=== PATIENT | male | born 1940 | race Caucasian/White ===

== ENCOUNTER 2018-05-13 13:12 | Inpatient (IN) ==
[2018-05-13] MEDS ORDERED: MethylPREDNISolone Sod Succinate Inj 125 MG/2 ML Vial IV.PUSH ONE (13:28)
--- NOTE | 2018-05-13 13:43 | ED ---
HPI General Chief Complaint: Respiratory Symptoms Stated Complaint: Medical Time Seen by Provider: 05/13/18 13:16 Source: patient Mode of arrival: ambulatory Limitations: no limitations History of Present Illness The patient had a normal bowel movement earlier today.The patient is a 78-year -old male who presents to the emergency department for shortness of breath. The patient has a long-standing history of COPD and previous pneumothorax with previous surgery for the pneumothorax. The patient is followed by his sod stripper, Dr. Root. The patient had increasing shortness of breath last week and saw his sod stripper who placed him on prednisone 20 mg daily. The patient then had progressing symptoms and increase his oxygen use at home from 3 L to 4 L. However, the patient notes increasing shortness of breath that is worse with exertion and talking. The patient states he becomes short of breath just walking to the bathroom which is worse than baseline. He does note a chronic dry nonproductive cough, denies any change in the cough. He also complains of mild abdominal distention which he believes is pressing on his diaphragm, however, denies any nausea, vomiting, or change in bowel movements. The patient denies any fever, chills, or sweats. Symptoms are moderate to severe and progressive. MD Complaint: Reports shortness of breath Onset (ago): day(s) Context: Reports occurred during exertion and other Severity: severe Consistency/Duration: progressively worsening Relieving factors: nothing Exacerbating factors: exertion and talking Known history of: Reports COPD Associated symptoms: Reports cough and abdominal pain Treatment prior to arrival: Reports oxygen and other Related Data Home oxygen amount: 4 liters Home Medications Medication Instructions Recorded Confirmed aspirin [Serena Aspirin] 325 mg PO DAILY 05/13/18 05/13/18 atorvastatin 20 mg PO DAILY 05/13/18 05/13/18 diltiazem HCl 120 mg PO DAILY 05/13/18 05/13/18 fluticasone-salmeterol [Advair 1 inh INHALATION BID 05/13/18 05/13/18 Diskus] prednisone 20 mg PO DAILY 05/13/18 05/13/18 warfarin 3 mg PO DAILY 05/13/18 05/13/18 warfarin See Label Instructions .ROUTE 05/13/18 05/13/18 .COMPLEX Allergies Allergy/AdvReac Type Severity Reaction Status Date / Time *MDRO Multi-Drug Resistant AdvReac Unknown Uncoded 12/08/15 09:33 Organism Review of Systems ROS: all other systems reviewed are negative [facility] Medical History Medical History AAA (abdominal aortic aneurysm) (Acute) AAA (abdominal aortic aneurysm, ruptured) (Acute) Afib (Acute) Blood thinned due to long-term anticoagulant use (Acute) COPD (chronic obstructive pulmonary disease) (Acute) Oxygen deficiency (Acute) Pneumothorax (Acute) Shortness of breath (Acute) Social History Social History Substance History: No History of Abuse Smoking Status: Former smoker How Often Do You Have a Drink Containing Alcohol: 4 or more times a week Recent Travel in [facility] within the Last 8 Weeks: No Recent Out of Country Travel within the Last 8 Weeks: No Immunization History Tetanus Immunization: <5 Years Exam Narrative Exam Narrative: GENERAL: Awake, alert, pleasant 78-year-old male who appears his stated age and appears in moderate respiratory distress. SKIN: Focused skin assessment warm/dry. HEAD: Atraumatic. Normocephalic. EYES: Pupils equal and round. No scleral icterus. No injection or drainage. ENT: No nasal bleeding or discharge. Mucous membranes pink and moist. NECK: Trachea midline. No JVD. CARDIOVASCULAR: Regular, no audible murmur, heart rate in the 80s. RESPIRATORY: Tachypnea with a respiratory rate of 30. Diminished breath sounds throughout with prolonged expiratory phase. GASTROINTESTINAL: Abdomen soft, non-tender, minimal distention. No tympany noted. No rebound tenderness, guarding, rigidity. MUSCULOSKELETAL: No obvious deformities. No clubbing. No cyanosis. No edema. NEUROLOGICAL: Awake and alert. No obvious cranial nerve deficits. Motor grossly within normal limits. Normal speech. PSYCHIATRIC: Appropriate mood and affect; insight and judgment normal. Course Initial Documented Vital Signs Pulse Rate 94 H 05/13/18 13:13 Respiratory Rate 40 H 05/13/18 13:13 Blood Pressure 142/67 H 05/13/18 13:13 Pulse Oximetry 81 L 05/13/18 13:13 Last Documented Vital Signs Temperature 97.9 F 05/13/18 13:40 Pulse Rate 95 H 05/13/18 14:21 Respiratory Rate 24 05/13/18 14:21 Blood Pressure 124/83 05/13/18 13:28 Pulse Oximetry 97 05/13/18 14:21 Medical Decision Making MDM Narrative Medical decision making narrative: IV was established, labs are drawn and sent, and the patient was placed on cardiac telemetry monitoring and continuous pulse oximetry monitoring. EKG was ordered and interpreted. Chest x-ray was obtained. The patient was administered DuoNeb x2 and Solu-Medrol 125 mg intravenously. The patient's chest x-ray reveals a right lower lobe infiltrate. BNP is unremarkable. Troponin is unremarkable. INR is therapeutic at 2.2, doubt pulmonary embolism. It appears the patient had a COPD exacerbation with secondary pneumonia that failed outpatient therapy, therefore, the patient will be admitted. The patient also had hypoxia with an O2 sat in the 70s, was placed on oxygen to get his oxygen saturation up to 90-92 %. The patient's primary physician is Dr. Stephen Ricci and the patient's sod stripper is Dr. Binh Root. The patient will be admitted to the on- call medical service. The patient was covered with Rocephin and Zithromax for community acquired pneumonia. Medical Screen Exam Complete: Yes Emergency Medical Condition: Yes Differential Diagnosis Differential Diagnosis: Differential diagnosis includes COPD exacerbation, pneumonia, bronchitis, pleural effusion, pulmonary embolism, cardiomyopathy, congestive heart failure. Lab Data Lab results reviewed: Yes I reviewed the patient's lab results. Result diagrams: 05/13/18 13:35 05/13/18 13:35 Lab Results 05/13/18 05/13/18 05/13/18 Range/Units 13:35 13:35 13:35 WBC 8.5 (4.0-11.0) th/mm3 RBC 5.71 (4.50-5.90) mil/mm3 Hgb 16.9 (13.0-17.0) gm/dL Hct 51.2 H (39.0-51.0) % MCV 89.8 (80.0-100.0) fL MCH 29.6 (27.0-34.0) pg MCHC 33.0 (32.0-36.0) % RDW 14.2 (11.6-17.2) % Plt Count 254 (150-450) th/mm3 MPV 8.9 (7.0-11.0) fL Neut % (Auto) 88.8 H (16.0-70.0) % Lymph % (Auto) 8.3 L (9.0-44.0) % Fountain % (Auto) 2.7 (0.0-8.0) % Eos % (Auto) 0.0 (0.0-4.0) % Baso % (Auto) 0.2 (0.0-2.0) % Neut # (Auto) 7.6 (1.8-7.7) th/mm3 Lymph # (Auto) 0.7 L (1.0-4.8) th/mm3 Fountain # (Auto) 0.2 (0.0-0.9) th/mm3 Eos # (Auto) 0.0 (0.0-0.4) th/mm3 Baso # (Auto) 0.0 (0.0-0.2) th/mm3 WBC Differential . Differential Comment Auto diff final PT (9.8-11.6) sec INR Ratio APTT (24.3-30.1) sec Sodium 137 (136-145) meq/L Potassium 4.9 (3.5-5.1) meq/L Chloride 102 (98-107) meq/L Carbon Dioxide 27.8 (21.0-32.0) meq/L Anion Gap 7 (5-15) meq/L BUN 13 (7-18) mg/dL Creatinine 0.92 (0.60-1.30) mg/dL Estimated GFR 80 L (>89) mL/min Random Glucose 96 (74-106) mg/dL Calcium 8.7 (8.5-10.1) mg/dL Magnesium 2.0 (1.5-2.5) mg/dL Total Bilirubin 0.9 (0.2-1.0) mg/dL AST 24 (15-37) U/L ALT 22 (12-78) U/L Alkaline Phosphatase 85 (45-117) U/L Total Creatine Kinase 78 (39-308) U/L Troponin I Less than 0.02 L (0.02-0.05) ng/mL B-Natriuretic Peptide 55 (0-100) pg/mL Total Protein 8.4 H (6.4-8.2) g/dL Albumin 3.8 (3.4-5.0) g/dL 05/13/18 Range/Units 13:45 WBC (4.0-11.0) th/mm3 RBC (4.50-5.90) mil/mm3 Hgb (13.0-17.0) gm/dL Hct (39.0-51.0) % MCV (80.0-100.0) fL MCH (27.0-34.0) pg MCHC (32.0-36.0) % RDW (11.6-17.2) % Plt Count (150-450) th/mm3 MPV (7.0-11.0) fL Neut % (Auto) (16.0-70.0) % Lymph % (Auto) (9.0-44.0) % Fountain % (Auto) (0.0-8.0) % Eos % (Auto) (0.0-4.0) % Baso % (Auto) (0.0-2.0) % Neut # (Auto) (1.8-7.7) th/mm3 Lymph # (Auto) (1.0-4.8) th/mm3 Fountain # (Auto) (0.0-0.9) th/mm3 Eos # (Auto) (0.0-0.4) th/mm3 Baso # (Auto) (0.0-0.2) th/mm3 WBC Differential Differential Comment PT 22.3 H (9.8-11.6) sec INR 2.2 Ratio APTT 33.5 H (24.3-30.1) sec Sodium (136-145) meq/L Potassium (3.5-5.1) meq/L Chloride (98-107) meq/L Carbon Dioxide (21.0-32.0) meq/L Anion Gap (5-15) meq/L BUN (7-18) mg/dL Creatinine (0.60-1.30) mg/dL Estimated GFR (>89) mL/min Random Glucose (74-106) mg/dL Calcium (8.5-10.1) mg/dL Magnesium (1.5-2.5) mg/dL Total Bilirubin (0.2-1.0) mg/dL AST (15-37) U/L ALT (12-78) U/L Alkaline Phosphatase (45-117) U/L Total Creatine Kinase (39-308) U/L Troponin I (0.02-0.05) ng/mL B-Natriuretic Peptide (0-100) pg/mL Total Protein (6.4-8.2) g/dL Albumin (3.4-5.0) g/dL Imaging Data Attestation: I personally reviewed and interpreted this imaging study as follows : My impression: Right perihilar infiltrate Radiologist's impression: Chest X-Ray 05/13/18 13:29 CONCLUSION: 1. Right perihilar patchiness consistent with possible developing infiltrate. Clinical correlation is recommended. 2. Small right pleural effusion. 3. Scattered underlying emphysematous changes and biapical scarring are stable. ECG Data EKG Prior to Arrival: No Attestation: I personally reviewed and interpreted this ECG as follows: Interpretation: EKG reveals normal sinus rhythm with a rate 85. Left axis deviation. Discharge Plan Discharge Disposition Patient Disposition: 30 Still Patient Discharge Condition Condition: Stable Discharge Details Diagnosis: Community acquired pneumonia, Hypoxia, COPD with acute exacerbation Physicians Team ED Provider: Haroldo Gutierrez Primary Care Provider: UNKNOWN, Rxs /Orders / Referrals /Forms Prescriptions: No Action fluticasone-salmeterol [Advair Diskus] 250-50 mcg/dose Blister With Device 1 inh INHALATION BID RF: 0 atorvastatin 20 mg Tablet 20 mg PO DAILY RF: 0 aspirin [Serena Aspirin] 325 mg Tablet 325 mg PO DAILY RF: 0 prednisone 20 mg Tablet 20 mg PO DAILY RF: 0 warfarin 3 mg Tablet 3 mg PO DAILY RF: 0 diltiazem HCl 120 mg Capsule,Extended Release 24 Hr 120 mg PO DAILY RF: 0 warfarin 2 mg Tablet See Label Instructions .ROUTE .COMPLEX RF: 0 Discharge Interventions Interventions: Vital Signs Last Done: 05/13/18 13:40 Status ED Status: Pending Admission
[2018-05-13 13:51] LABS: Baso % (Auto) 0.2 % (0.0-2.0); Hematocrit 51.2 % (39.0-51.0); Hemoglobin 16.9 gm/dL (13.0-17.0); Lymph # (Auto) 0.7 th/mm3 (1.0-4.8); Lymph % (Auto) 8.3 % (9.0-44.0); Mean Corpuscular Hemoglobin 29.6 pg (27.0-34.0); Mean Corpuscular Volume 89.8 fL (80.0-100.0); Mean Platelet Volume 8.9 fL (7.0-11.0); Mono # (Auto) 0.2 th/mm3 (0.0-0.9); Mono % (Auto) 2.7 % (0.0-8.0); Neut # (Auto) 7.6 th/mm3 (1.8-7.7); Neut % (Auto) 88.8 % (16.0-70.0); Platelet Count 254 th/mm3 (150-450); Red Blood Count 5.71 mil/mm3 (4.50-5.90); Red Cell Distribution Width 14.2 % (11.6-17.2); White Blood Count 8.5 th/mm3 (4.0-11.0)
--- NOTE | 2018-05-13 13:55 | XR ---
EXAM DATE: 05/13/2018 1:50 PM EDT AGE/SEX: 78 years / Male INDICATIONS: Shortness of breath. CLINICAL DATA: This is the patient's initial encounter. Patient reports that signs and symptoms have been present for 1 day and indicates a pain score of 0/10. MEDICAL/SURGICAL HISTORY: Chronic obstructive pulmonary disease. Emphysema. Aneurysm, abdominal . Arthritis. Neuropathy bilateral lower extremities post AAA. Hyperlipidemia. A-Fib. COPD. Asthma. Sl eep apnea. Pneumothorax. MRSA. . Valve replacement, unspecified. Abdominal aortic aneurysm repair. Cholecystectomy. Right hip replacement. Right lobectomy. COMPARISON: [facility], XR CHEST PA AND LAT, 05/01/2018. . FINDINGS: Small right pleural effusion is noted. Underlying emphysematous changes are again noted. Right perihi lar patchiness is noted consistent with possible developing infiltrate. Biapical scarring is stable. Median sternotomy wires are noted status post cardiac surgery. The heart is stable. CONCLUSION: 1. Right perihilar patchiness consistent with possible developing infiltrate. Clinical correlation i s recommended. 2. Small right pleural effusion. 3. Scattered underlying emphysematous changes and biapical scarring are stable. Electronically signed by: Sandoval Gonzalez MD 05/13/2018 1:53 PM EDT
[2018-05-13] MEDS ORDERED: Azithromycin Inj 500 MG in Sodium Chlor 0.9% Inj 250 ML IV.SIG ONE (13:56)
[2018-05-13 14:06] LABS: Activated Partial Thrombo Time 33.5 sec (24.3-30.1); INR 2.2 Ratio; Prothrombin Time 22.3 sec (9.8-11.6)
[2018-05-13 14:14] LABS: Alanine Aminotransferase 22 U/L (12-78); Albumin 3.8 g/dL (3.4-5.0); Anion Gap 7 meq/L (5-15); Aspartate Aminotransferase 24 U/L (15-37); Blood Urea Nitrogen 13 mg/dL (7-18); Calcium 8.7 mg/dL (8.5-10.1); Carbon Dioxide 27.8 meq/L (21.0-32.0); Chloride 102 meq/L (98-107); Glomerular Filtration Rate 80 mL/min (>89); Glucose,Random 96 mg/dL (74-106); Potassium 4.9 meq/L (3.5-5.1); Sodium 137 meq/L (136-145)
[2018-05-13 14:18] LABS: Alkaline Phosphatase 85 U/L (45-117); Total Protein 8.4 g/dL (6.4-8.2)
[2018-05-13 14:20] LABS: Creatine Kinase 78 U/L (39-308)
[2018-05-13] MEDS ORDERED: Warfarin Consult Pharmacy OTHER PRN (14:53)
[2018-05-13] MEDS ORDERED: Acetaminophen 325 MG Tablet PO PRN (14:59)
--- NOTE | 2018-05-13 15:22 | P.HPIM ---
History of Present Illness Primary Care Physician: UNKNOWN Chief Complaint: Shortness of breath History of Present Illness: The patient is a 78-year-old male with a past medical history of COPD on home oxygen who is presenting to the hospital with shortness of breath. The patient has chronic shortness of breath but his breathing became more labored about 2 weeks ago. He went to his toxicologist who ordered a chest x-ray and increased his prednisone dose. The patient did not feel much better. He says over the past 3 days his breathing has gotten progressively worse. He feels short of breath sitting down and standing up. He increased his home oxygen to 4 L nasal cannula all of the time. At home his pulse oximeter said that his oxygen level was in the 70s and it took a long time to get back up to the 80s. He denies any fever. He has had clear mucus production. He has chronic lower extremity swelling but nothing new. He says this is the third bout of pneumonia he has had. He has had a prior pneumothorax and lobectomy. He is a former smoker. Review of Systems All other systems reviewed negative except as stated in HPI PMFSH - History History Provided By: Patient - Medical History Medical History: Medical History (Last Updated 05/13/18 @ 15:21 by Ezra Snow DO) AAA (abdominal aortic aneurysm) AAA (abdominal aortic aneurysm, ruptured) Afib Blood thinned due to long-term anticoagulant use COPD (chronic obstructive pulmonary disease) Hyperlipidemia Oxygen deficiency Pneumonia Pneumothorax Shortness of breath - Surgical History Surgical History: Surgical History (Last Updated 05/13/18 @ 15:21 by Ezra Snow DO) S/P lobectomy of lung - Family History Family History: Family History (Last Updated 05/13/18 @ 15:22 by Ezra Snow DO) Other Brain aneurysm - Social History I have reviewed the patient's Social History: Yes - Tobacco History Smoking Status: Former smoker - Alcohol History How Often Do You Have a Drink Containing Alcohol: 4 or more times a week ( Drinks wine daily) - Substance Use History Substance History: No History of Abuse - Travel History Recent Travel in the [facility] Within the Last 8 Weeks: No Recent Travel Out of the Country Within the Last 8 Weeks: No - Immunization History Tetanus Immunization: <5 Years Medications and Allergies Active Medications: Active Medications Acetaminophen (Tylenol) 650 mg PO Q4H PRN PRN Reason: Temp > 100.4, pain 1-2 Albuterol (Duoneb Neb (Alesha)) 1 ampul NEB Q6HR WHILE AWAKE NEB ALESHA Albuterol (Duoneb Neb (Prn)) 1 ampul NEB Q2HR NEB PRN PRN Reason: DYSPNEA Aspirin (Aspirin) 325 mg PO DAILY [facility] Atorvastatin Calcium (Lipitor) 20 mg PO DAILY [facility] Budesonide/Formoterol Fumarate (Symbicort 160/4.5 Mcg Inh) 2 puff INH BID [facility] Azithromycin 500 mg/ Sodium (Chloride) 250 mls @ 250 mls/hr IV.SIG Q24H ALESHA Ceftriaxone Sodium 1,000 mg/ (Sodium Chloride) 100 mls @ 200 mls/hr IV.SIG Q24H ALESHA Sodium Chloride (Ns Inj) 1,000 mls @ 100 mls/hr IV.CONT .Q10H [facility] Stop: 05/14/18 10:59 Non-Formulary Medication (Diltiazem Hcl [Diltiazem Hcl]) 120 mg PO DAILY [facility] Pharmacy Profile Note (Coumadin Consult Pharmacy) 1 each OTHER UNSCH PRN PRN Reason: PHARMACY DOCUMENTATION Warfarin Sodium (Coumadin) 3 mg PO DAILY@1600 [facility] Allergies Allergy/AdvReac Type Severity Reaction Status Date / Time *MDRO Multi-Drug Resistant AdvReac Unknown Uncoded 12/08/15 09:33 Organism Home Medications Medication Instructions Recorded Confirmed Type aspirin [Serena Aspirin] 325 mg PO DAILY 05/13/18 05/13/18 History atorvastatin 20 mg PO DAILY 05/13/18 05/13/18 History diltiazem HCl 120 mg PO DAILY 05/13/18 05/13/18 History fluticasone-salmeterol [Advair 1 inh INHALATION BID 05/13/18 05/13/18 History Diskus] prednisone 20 mg PO DAILY 05/13/18 05/13/18 History warfarin 3 mg PO DAILY 05/13/18 05/13/18 History warfarin See Label Instructions .ROUTE 05/13/18 05/13/18 History .COMPLEX Exam Vital signs: Vital Signs 05/13/18 13:13 05/13/18 13:28 05/13/18 13:33 Temperature Pulse Rate 94 H 96 H Respiratory Rate 40 H 20 Blood Pressure 142/67 H 124/83 Pulse Oximetry 81 L 79 L 92 L 05/13/18 13:40 05/13/18 14:21 05/13/18 14:58 Temperature 97.9 F Pulse Rate 95 H 83 Respiratory Rate 24 15 Blood Pressure 124/83 Pulse Oximetry 97 94 L Intake & Output 05/12/18 05/13/18 05/13/18 18:59 06:59 18:59 Intake Total 100 / 100 Balance 100 / 100 Weight 77.564 kg Intake: IV 100 / 100 Rocephin Inj 1,000 MG In NS Inj 100 / 100 100 ML @ 200 mls/hr IV.SIG ONCE ONE Rx#:[id number] Narrative: GENERAL: No apparent distress. SKIN: Focused skin assessment warm/dry. HEAD: Atraumatic. Normocephalic. EYES: Pupils equal and round. No scleral icterus. No injection or drainage. ENT: No nasal bleeding or discharge. Mucous membranes pink and moist. NECK: Trachea midline. No JVD. CARDIOVASCULAR: Regular, no audible murmur. RESPIRATORY: Diminished breath sounds throughout with prolonged expiratory phase. GASTROINTESTINAL: Abdomen soft, non-tender, no distention. No rebound tenderness , guarding, rigidity. MUSCULOSKELETAL: No obvious deformities. No clubbing. No cyanosis. TR lower extremity edema. NEUROLOGICAL: Awake and alert. No obvious cranial nerve deficits. Motor grossly within normal limits. Normal speech. PSYCHIATRIC: Appropriate mood and affect; insight and judgment normal. Results - Labs CBC & Chem 7: 05/13/18 13:35 05/13/18 13:35 Labs: Short CBC 05/13/18 Range/Units 13:35 WBC 8.5 (4.0-11.0) th/mm3 Hgb 16.9 (13.0-17.0) gm/dL Hct 51.2 H (39.0-51.0) % Plt Count 254 (150-450) th/mm3 BMP 05/13/18 13:35 Sodium 137 Potassium 4.9 Chloride 102 Carbon Dioxide 27.8 BUN 13 Creatinine 0.92 Calcium 8.7 Cardiac Enzymes 05/13/18 Range/Units 13:35 Total Creatine Kinase 78 (39-308) U/L Troponin I Less than 0.02 L (0.02-0.05) ng/mL Liver Function 05/13/18 Range/Units 13:35 Total Bilirubin 0.9 (0.2-1.0) mg/dL AST 24 (15-37) U/L ALT 22 (12-78) U/L Alkaline Phosphatase 85 (45-117) U/L Albumin 3.8 (3.4-5.0) g/dL - Imaging Impressions Chest X-Ray 05/13/18 13:29 CONCLUSION: 1. Right perihilar patchiness consistent with possible developing infiltrate. Clinical correlation is recommended. 2. Small right pleural effusion. 3. Scattered underlying emphysematous changes and biapical scarring are stable. Caprini VTE Risk Assessment Caprini VTE Risk Assessment: Moderate/High Risk (score >= 2) Caprini Risk Assessment Model: Point Value = 1 Point Value = 2 Point Value = 3 Point Value = 5 Age 41-60 Minor surgery BMI > 25 kg/m2 Swollen legs Varicose veins or History of unexplained or recurrent spontaneous Oral contraceptives or hormone replacement Sepsis (< 1 month) Serious lung disease, including pneumonia (< 1 month) Abnormal pulmonary function Acute myocardial infarction Congestive heart failure (< 1 month) History of inflammatory bowel disease Medical patient at bed rest Age 61-74 Arthroscopic surgery Major open surgery (> 45 min) Laparoscopic surgery (> 45 min) Malignancy Confined to bed (> 72 hours) Immobilizing plaster cast Central venous access Age >= 75 History of VTE Family history of VTE Factor V Leiden Prothrombin [id number] Lupus anticoagulant Anticardiolipin antibodies Elevated serum homocysteine Heparin-induced thrombocytopenia Other congenital or acquired thrombophilia Stroke (< 1 month) Elective arthroplasty Hip, pelvis, or leg fracture Acute spinal cord injury (< 1 month) Prophylaxis Regimen: Total Risk Factor Score Risk Level Prophylaxis Regimen 0-1 Low Early ambulation 2 Moderate Order ONE of the following: *Sequential Compression Device (SCD) *Heparin 5000 units SQ BID 3-4 Higher Order ONE of the following medications: *Heparin 5000 units SQ TID *Enoxaparin/Lovenox 40 mg SQ daily (WT < 150 kg, CrCl > 30 mL/min) *Enoxaparin/Lovenox 30 mg SQ daily (WT < 150 kg, CrCl > 10-29 mL/min) *Enoxaparin/Lovenox 30 mg SQ BID (WT < 150 kg, CrCl > 30 mL/min) AND/OR *Sequential Compression Device (SCD) 5 or more Highest Order ONE of the following medications: *Heparin 5000 units SQ TID (Preferred with Epidurals) *Enoxaparin/Lovenox 40 mg SQ daily (WT < 150 kg, CrCl > 30 mL/min) *Enoxaparin/Lovenox 30 mg SQ daily (WT < 150 kg, CrCl > 10-29 mL/min) *Enoxaparin/Lovenox 30 mg SQ BID (WT < 150 kg, CrCl > 30 mL/min) AND *Sequential Compression Device (SCD) Assessment and Plan - Plan Acute COPD exacerbation with pneumonia The pt is on 4L NC at home. Imaging shows right sided pneumonia. Has been hypoxemic with sats in the 70s. -continue IV ceftriaxone and azithromycin. -standing and as needed nebs. -Solumedrol 40 mg IV q8h. -continue oxygen, titrate as needed. -incentive spirometry, physical therapy. -consult pt's toxicologist, Dr. Root. A fib EKG shows sinus rhythm. -continue Coumadin, pharmacy assistance appreciated. -continue ASA and CCB. PPx: Coumadin Code Status: Full
[2018-05-13] MEDS: Sod Chloride 0.9% Inj 1,000 ML IV.CONT SCH (16:23)
[2018-05-13] MEDS: MethylPREDNISolone Sod Succinate Inj 40 MG/ML Vial IV.PUSH SCH (22:12)
[2018-05-13] MEDS: Budesonide-Formoterol 160/4.5 MCG 6 GM Inhaler INH SCH (23:11)
--- NOTE | 2018-05-13 23:40 | ECG ---
Date Performed: 05/13/2018 Time Performed: 13:39:08 PTAGE: 78 years EKG: Sinus rhythm MARKED LEFT AXIS DEVIATION ABNORMAL QRS-T ANGLE ABNORMAL ECG PREVIOUS TRACING : 12/03/2015 15.02 Since the previous tracing, no significant change noted DOCTOR: Burak Ortiz Interpretating Date/Time 05/13/2018 23:40:21
[2018-05-14] MEDS: Sod Chloride 0.9% Inj 1,000 ML IV.CONT SCH (00:32)
[2018-05-14] MEDS: MethylPREDNISolone Sod Succinate Inj 40 MG/ML Vial IV.PUSH SCH ×3 (05:43→22:12)
[2018-05-14 07:23] LABS: Baso % (Auto) 0.1 % (0.0-2.0); Hematocrit 45.4 % (39.0-51.0); Hemoglobin 14.9 gm/dL (13.0-17.0); Lymph # (Auto) 0.8 th/mm3 (1.0-4.8); Lymph % (Auto) 8.1 % (9.0-44.0); Mean Corpuscular HGB Conc 32.8 % (32.0-36.0); Mean Corpuscular Hemoglobin 29.8 pg (27.0-34.0); Mean Corpuscular Volume 90.8 fL (80.0-100.0); Mean Platelet Volume 8.9 fL (7.0-11.0); Mono # (Auto) 0.2 th/mm3 (0.0-0.9); Mono % (Auto) 2.6 % (0.0-8.0); Neut # (Auto) 8.3 th/mm3 (1.8-7.7); Neut % (Auto) 89.2 % (16.0-70.0); Platelet Count 210 th/mm3 (150-450); Red Blood Count 4.99 mil/mm3 (4.50-5.90); Red Cell Distribution Width 14.4 % (11.6-17.2); White Blood Count 9.3 th/mm3 (4.0-11.0)
[2018-05-14 07:29] LABS: Prothrombin Time 20.6 sec (9.8-11.6)
[2018-05-14 07:49] LABS: Alanine Aminotransferase 19 U/L (12-78); Albumin 3.2 g/dL (3.4-5.0); Anion Gap 6 meq/L (5-15); Aspartate Aminotransferase 19 U/L (15-37); Blood Urea Nitrogen 17 mg/dL (7-18); Calcium 8.6 mg/dL (8.5-10.1); Carbon Dioxide 29.6 meq/L (21.0-32.0); Chloride 103 meq/L (98-107); Glomerular Filtration Rate 82 mL/min (>89); Glucose,Random 129 mg/dL (74-106); Potassium 4.8 meq/L (3.5-5.1); Sodium 139 meq/L (136-145)
[2018-05-14 07:50] LABS: Alkaline Phosphatase 71 U/L (45-117); Total Protein 7.5 g/dL (6.4-8.2)
[2018-05-14] MEDS ORDERED: Aspirin 325 MG Tablet PO SCH (09:00)
[2018-05-14] MEDS: Budesonide-Formoterol 160/4.5 MCG 6 GM Inhaler INH SCH ×2 (10:07→22:13)
[2018-05-14] MEDS: dilTIAZem CD 120 MG Capsule PO SCH (10:07)
--- NOTE | 2018-05-14 10:59 | P.PN ---
Subjective Interval history: Follow-up COPD exacerbation with respiratory failure/required pneumonia May 14, 2018-patient seen and examined, reports some improvement of shortness of breath. Still with some nonproductive cough. Requiring 6 L nasal cannula. Afebrile Physical Exam Vital signs: Vital Signs 05/13/18 13:13 05/13/18 13:28 05/13/18 13:33 Temperature Pulse Rate 94 H 96 H Respiratory Rate 40 H 20 Blood Pressure 142/67 H 124/83 Pulse Oximetry 81 L 79 L 92 L 05/13/18 13:40 05/13/18 14:21 05/13/18 14:58 Temperature 97.9 F Pulse Rate 95 H 83 Respiratory Rate 24 15 Blood Pressure 124/83 Pulse Oximetry 97 94 L 05/13/18 17:38 05/13/18 17:59 05/13/18 20:00 Temperature 98 F 98.0 F Pulse Rate 80 84 Respiratory Rate 18 19 Blood Pressure 126/62 108/68 Pulse Oximetry 92 L 97 92 L 05/13/18 21:17 05/14/18 00:00 05/14/18 02:28 Temperature 98.0 F Pulse Rate 88 85 104 H Respiratory Rate 20 17 24 Blood Pressure 116/69 Pulse Oximetry 91 L 95 05/14/18 04:00 05/14/18 07:59 05/14/18 08:00 Temperature 97.9 F 97.6 F Pulse Rate 90 79 82 Respiratory Rate 15 18 18 Blood Pressure 148/65 H 116/71 Pulse Oximetry 92 L 93 L 95 Intake & Output 05/13/18 05/14/18 05/14/18 18:59 06:59 18:59 Intake Total 590 / 590 240 / 240 Balance 590 / 590 240 / 240 Weight 77.7 kg 78 kg Intake: IV 350 / 350 0 / 0 NS Inj 1,000 ML @ 100 mls/hr IV 0 / 0 .CONT .Q10H [facility] Rx#:[id number] Azithromycin Inj 500 MG In NS 250 / 250 Inj 250 ML @ 250 mls/hr IV.SIG ONCE ONE Rx#:[id number] Rocephin Inj 1,000 MG In NS Inj 100 / 100 100 ML @ 200 mls/hr IV.SIG ONCE ONE Rx#:[id number] Oral 240 / 240 240 / 240 Other: Date of Last Bowel Movement 05/13/18 Weight On Admission 77.7 kg Narrative: GENERAL: No apparent distress. SKIN: Focused skin assessment warm/dry. HEAD: Atraumatic. Normocephalic. EYES: Pupils equal and round. No scleral icterus. No injection or drainage. ENT: No nasal bleeding or discharge. Mucous membranes pink and moist. NECK: Trachea midline. No JVD. CARDIOVASCULAR: Irregular regular, no audible murmur. RESPIRATORY: Diminished breath sounds throughout; no wheezing. GASTROINTESTINAL: Abdomen soft, non-tender, no distention. No rebound tenderness , guarding, rigidity. MUSCULOSKELETAL: No obvious deformities. No clubbing. No cyanosis. TR lower extremity edema. NEUROLOGICAL: Awake and alert. No obvious cranial nerve deficits. Motor grossly within normal limits. Normal speech. PSYCHIATRIC: Appropriate mood and affect; insight and judgment normal. Results - Labs CBC & Chem 7: 05/14/18 06:31 05/14/18 06:31 Laboratory Results - last 24 hr 05/13/18 05/13/18 05/13/18 13:35 13:35 13:35 WBC 8.5 RBC 5.71 Hgb 16.9 Hct 51.2 H MCV 89.8 MCH 29.6 MCHC 33.0 RDW 14.2 Plt Count 254 MPV 8.9 Neut % (Auto) 88.8 H Lymph % (Auto) 8.3 L [place] % (Auto) 2.7 Eos % (Auto) 0.0 Baso % (Auto) 0.2 Neut # (Auto) 7.6 Lymph # (Auto) 0.7 L [place] # (Auto) 0.2 Eos # (Auto) 0.0 Baso # (Auto) 0.0 WBC Differential . Differential Comment Auto diff final PT INR APTT Sodium 137 Potassium 4.9 Chloride 102 Carbon Dioxide 27.8 Anion Gap 7 BUN 13 Creatinine 0.92 Estimated GFR 80 L Random Glucose 96 Lactic Acid Calcium 8.7 Magnesium 2.0 Total Bilirubin 0.9 AST 24 ALT 22 Alkaline Phosphatase 85 Total Creatine Kinase 78 Troponin I Less than 0.02 L B-Natriuretic Peptide 55 Total Protein 8.4 H Albumin 3.8 05/13/18 05/13/18 05/14/18 13:45 14:00 06:31 WBC 9.3 RBC 4.99 Hgb 14.9 D Hct 45.4 MCV 90.8 MCH 29.8 MCHC 32.8 RDW 14.4 Plt Count 210 MPV 8.9 Neut % (Auto) 89.2 H Lymph % (Auto) 8.1 L [place] % (Auto) 2.6 Eos % (Auto) 0.0 Baso % (Auto) 0.1 Neut # (Auto) 8.3 H Lymph # (Auto) 0.8 L [place] # (Auto) 0.2 Eos # (Auto) 0.0 Baso # (Auto) 0.0 WBC Differential . Differential Comment Auto diff final PT 22.3 H INR 2.2 APTT 33.5 H Sodium Potassium Chloride Carbon Dioxide Anion Gap BUN Creatinine Estimated GFR Random Glucose Lactic Acid 2.2 H Calcium Magnesium Total Bilirubin AST ALT Alkaline Phosphatase Total Creatine Kinase Troponin I B-Natriuretic Peptide Total Protein Albumin 05/14/18 05/14/18 06:31 06:31 WBC RBC Hgb Hct MCV MCH MCHC RDW Plt Count MPV Neut % (Auto) Lymph % (Auto) [place] % (Auto) Eos % (Auto) Baso % (Auto) Neut # (Auto) Lymph # (Auto) [place] # (Auto) Eos # (Auto) Baso # (Auto) WBC Differential Differential Comment PT 20.6 H INR 2.0 APTT Sodium 139 Potassium 4.8 Chloride 103 Carbon Dioxide 29.6 Anion Gap 6 BUN 17 Creatinine 0.90 Estimated GFR 82 L Random Glucose 129 H Lactic Acid Calcium 8.6 Magnesium Total Bilirubin 0.7 AST 19 ALT 19 Alkaline Phosphatase 71 Total Creatine Kinase Troponin I B-Natriuretic Peptide Total Protein 7.5 D Albumin 3.2 L D - Imaging Impressions Chest X-Ray 05/13/18 13:29 CONCLUSION: 1. Right perihilar patchiness consistent with possible developing infiltrate. Clinical correlation is recommended. 2. Small right pleural effusion. 3. Scattered underlying emphysematous changes and biapical scarring are stable. - Procedures None Assessment and Plan - Plan 78-year-old man with COPD exacerbation with respiratory failure hypoxemia Continue acquired bacterial pneumonia Continue with Solu-Medrol 40 mg every 8 hour, bronchodilator schedule and as needed,Symbicort, azithromycin and Rocephin Start Spiriva, Mucinex Maintain oxygen saturation above 92% Consultation for pulmonary medicine pending Sputum culture if indicated Paroxysmal atrial fibrillation Continue with diltiazem and, Coumadin Decrease aspirin to 81 mg daily DVT prophylaxis: Coumadin
[2018-05-14] MEDS: Tiotropium Bromide 18 MCG/ACT Inhaler INH SCH (13:00)
[2018-05-14] MEDS: Azithromycin Inj 500 MG in Sodium Chlor 0.9% Inj 250 ML IV.SIG SCH (14:00)
--- NOTE | 2018-05-14 14:22 | CT ---
EXAM DATE: 05/14/2018 2:16 PM EDT AGE/SEX: 78 years / Male INDICATIONS: Pneumonia CLINICAL DATA: This is the patient's initial encounter. Patient reports that signs and symptoms have been present for 1 day and indicates a pain score of 0/10. MEDICAL/SURGICAL HISTORY: Aneurysm, abdominal. Chronic obstructive pulmonary disease. Atrial Fibri llation . Lobectomy RADIATION DOSE: 8.07 CTDI (mGy) COMPARISON: [facility], CTA CHEST, 07/07/2017. . TECHNIQUE: Multiple contiguous axial images were obtained through the chest without contrast. Image s were obtained in suspended respiration using multiple row detector helical technique. Using automa do exposure control and adjustment of the mA and/or kV according to patient size, radiation dose was kept as low as reasonably achievable to obtain optimal diagnostic quality images. DICOM format imag e data is available electronically for review and comparison. FINDINGS: Lungs: Partial atelectasis of the right lung base. There is a large right-sided pneumothorax. Stable scarring in the sutures in the right upper lobe anteriorly. Widespread underlying interstitial lung disease with extensive blebs bilaterally. 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 The transverse portion of the aorta measures 5.8 cm across unchanged from the previous study. There is no visible extraluminal hemorrhage. The shape of the ascending aorta is stable from the previous study. Dense coronary atherosclerotic disease. Pleurae: There is a right-sided pleural effusion stable since June 2017. Axillae: Unremarkable. Bony Structures: Ossification anterior longitudinal ligament. Previous median sternotomy. No acute f racture is identified. Miscellaneous: The examination was extended to include the upper abdomen, and both adrenal glands ar e normal in size and configuration. CONCLUSION: 1. Large right-sided hydropneumothorax. Widespread underlying interstitial lung disease with some co llapse of the right lower lobe. Severe interstitial disease on the left without pneumothorax or infil trate. 2. History of dissection of the thoracic aorta, unchanged in size or appearance since June Electronically signed by: Binh Hsu MD 05/14/2018 2:21 PM EDT
--- NOTE | 2018-05-14 14:46 | MB ---
cc: Bonilla Ramos MD DATE: 05/14/2018 HISTORY OF PRESENT ILLNESS: The patient is a 78-year-old male with a past medical history of COPD on 3 liter home oxygen continuously, being followed by Dr. Kemal Root, his outpatient supplies packer, history of atrial fibrillation, on Coumadin and hyperlipidemia. He presented to [facility] ED with progressive worsening shortness of breath associated with wheezing and productive cough with clear phlegm. The patient denies any fever, chills or constitutional symptoms. He states that he has chronic shortness of breath; however, he progressed and he became more labored for the past 2 weeks. The patient was given prednisone as an outpatient and, despite steroids and increasing his home oxygen, it did not improve his symptoms and he came to the ER for further evaluation and management. He was treated for pneumonia twice in the past. The patient denies any exposure to sick contacts. He has had a prior pneumothorax and lobectomy about 3 years ago. He uses Advair and a rescue inhaler at home. A chest x-ray, NAD, showed right perihilar patches consistent with possible developing infiltrate, small right pleural effusion and scattered emphysematous changes and bi-apical scarring. He was admitted under hospitalist service and was started on bronchodilators, steroids, and antibiotics. He is currently on 6 L nasal cannula with saturation of 93%. The patient is afebrile. He is feeling somewhat better. The patient quit smoking 19 years ago and used to smoke up to 4 packs per day and has a [id number] history of smoking. PAST MEDICAL HISTORY: Significant for COPD on 3 liters home oxygen continuously, abdominal aortic aneurysm status post repair, chronic atrial fibrillation on Coumadin, hyperlipidemia, prior history of pneumonia prior history of a pneumothorax 3 years ago. PAST SURGICAL HISTORY: Chest tube insertion for pneumothorax, previous AAA repair at [facility], previous lobectomy. ALLERGIES: NO KNOWN DRUG ALLERGIES. FAMILY HISTORY: Noncontributory to present illness. MEDICATIONS AT HOME: Include: 1. Prednisone 2. Aspirin. 3. Atorvastatin. 4. Diltiazem. 5. Advair. 6. Coumadin. SOCIAL HISTORY: Quit smoking 19 years ago, used to smoke up to 4 packs per day and has [id number] history of smoking. Social drinker. REVIEW OF SYSTEMS: As per HPI. The rest of review of systems unremarkable. PHYSICAL EXAMINATION: GENERAL: A 78-year-old male, sitting in chair in mild respiratory distress. VITAL SIGNS: Temperature 97.6, pulse 82, respiratory rate of 18, blood pressure 116/71, saturation 93-95% on 6 liter oxygen. HEENT: Atraumatic, normocephalic. Pupils equal and reactive to light and accommodation. Extraocular muscles intact. Conjunctivae pink. Nonicteric sclerae. Oral mucosa within normal. NECK: Supple. No JVD, adenopathy or thyromegaly. Trachea in the midline. CARDIOVASCULAR: Regular rate and rhythm. Normal S1, S2. No murmurs, rubs or gallops noted. PULMONARY: Bilateral equal air entry. Overall diminished breath sounds. No wheezing or crackles. ABDOMEN: Soft, nontender. No distention. Positive bowel sounds. EXTREMITIES: No cyanosis or clubbing. Trace edema. NEUROLOGIC: No focal sensory deficit. LABORATORY DATA: WBC 9.3, hemoglobin 14.9, hematocrit 45, platelet count 210. Sodium 139, potassium 4.8, chloride 103, CO2 29, BUN 17, creatinine 0.9, glucose 129. INR 2.0. Chest x-ray showed right perihilar patchiness consistent with possible developing infiltrate, small right pleural effusion and COPD changes. IMPRESSION: 1. Acute hypoxemic respiratory insufficiency. 2. Chronic obstructive pulmonary disease exacerbation. 3. Right-sided pneumonia. 4. Small right pleural effusion. 5. History of tobacco abuse. 6. History of pneumothorax. 7. Hypertension. 8. Atrial fibrillation, on Coumadin. 9. Coagulopathy secondary to Coumadin. RECOMMENDATIONS: 1. We will Wean down oxygen as tolerated and maintain saturation above 92%. 2. Continue with bronchodilators in the form of DuoNeb every 4 hours plus every 2 hours p.r.n. for shortness of breath and Symbicort 160/4.5 two puffs b.i.d. 3. Continue with Solu-Medrol 40 mg IV every 8 hours. 4. BiPAP p.r.n. for respiratory distress. 5. We will proceed with CT scan of the chest without contrast for further evaluation of pulmonary parenchyma. 6. Continue with current antibiotics in the form of Rocephin and azithromycin. Monitor for signs of infection, which include fever and WBC. We will obtain sputum culture with Gram stain and will check strep pneumonia and legionella urinary antigen. 7. Will send a nasal washing to rule out influenza. 8. Gastrointestinal and deep venous thrombosis prophylaxis. The patient is on Coumadin with INR of 2.0 today. 9. Further recommendations will be based on the hospital course. Thank you for consultation and allowing us to participate in this patient's care. Addendum: CT chest reviewed showed large right-sided hydropneumothorax. Widespread underlying interstitial lung disease . Discussed with Dr. Valerio from IR plan to proceed with chest tube placement. MD SHIRLEY Foreman/fannie , 11:00 AM , 11:14 AM [id number]
[2018-05-14] MEDS ORDERED: fentaNYL Citrate Inj 250 MCG/5 ML Ampul ONE (17:31)
--- NOTE | 2018-05-14 18:26 | CT ---
EXAM DATE: 05/14/2018 6:21 PM EDT AGE/SEX: 78 years / Male INDICATIONS: Right pneumothorax. CLINICAL DATA: This is the patient's initial encounter. Patient reports that signs and symptoms have been present for 1 day and indicates a pain score of 3/10. MEDICAL/SURGICAL HISTORY: Aneurysm, abdominal. Chronic obstructive pulmonary disease. . lobect reyna MEDICATION(S): 50mcg fentanyl (Sublimaze) IV 0.5mg lorazepam (Ativan) IV DEVICE(S): 10 Fr Amy . . COMPARISON: [facility] [place], CT CHEST W/O CONTRAST, 05/14/2018. . PROCEDURE : CT guided right chest tube placement. EKG and oximetry remained stable throughout the procedure. The risks, benefits and alternatives to the procedure were explained and verbal and written consent w as obtained. The site was prepped in sterile fashion. Full sterile technique was used, including ca p, mask, sterile gloves and gown and a large sterile sheet. Hand hygiene and 2% chlorhexidine and/or betadine/alcohol prep was utilized per protocol for cutaneous antisepsis. The skin and subcutaneous tissues were infiltrated with local anesthetic solution. Using automated exposure control and adjus tment of the mA and/or kV according to patient size, radiation dose was kept as low as reasonably ach ievable to obtain optimal diagnostic quality images. DICOM format image data is available electronic ally for review and comparison. With CT guidance the chest was punctured and the prescribed catheter was placed in the right base of the lung. Wall suction was applied. Post procedure images demonstrate satisfactory position of the t ube. The catheter was sutured in place and a Percu-Stay was applied. The patient tolerated the procedure well and there were no complications. The patient was sent to pos t anesthesia recovery in stable condition. FINDINGS: Loculated right base hydropneumothorax. Extensive chronic emphysematous change and lung scarring main ly in the apex likely tethering the upper portions of the lung. CONCLUSION: 1. Uncomplicated chest tube placement as above. 2. Fluid was sent for culture and sensitivity testing as well as cytology Electronically signed by: Bony Valerio MD 05/14/2018 6:25 PM EDT
[2018-05-14] MEDS: guaiFENesin 600 MG ER Tablet PO SCH (22:12)
[2018-05-15] MEDS: MethylPREDNISolone Sod Succinate Inj 40 MG/ML Vial IV.PUSH SCH ×3 (05:29→21:28)
--- NOTE | 2018-05-15 09:07 | P.PN ---
Subjective Interval history: Follow-up COPD exacerbation with respiratory failure/required pneumonia May 14, 2018-patient seen and examined, reports some improvement of shortness of breath. Still with some nonproductive cough. Requiring 6 L nasal cannula. Afebrile May 15, 2018-patient seen and examined, had chest tube placed yesterday and reports improvement of shortness of breath; no acute event overnight. Physical Exam Vital signs: Vital Signs 05/14/18 11:48 05/14/18 12:00 05/14/18 16:00 Temperature 97.7 F 97.9 F Pulse Rate 72 101 H 70 Respiratory Rate 18 18 18 Blood Pressure 137/64 114/70 Pulse Oximetry 94 L 93 L 05/14/18 19:38 05/14/18 20:00 05/14/18 23:56 Temperature 98.1 F Pulse Rate 94 H 88 77 Respiratory Rate 16 17 16 Blood Pressure 97/70 L Pulse Oximetry 94 L 95 05/15/18 00:00 05/15/18 03:52 05/15/18 03:59 Temperature 97.6 F Pulse Rate 88 81 Respiratory Rate 22 18 Blood Pressure 92/50 L Pulse Oximetry 97 95 05/15/18 04:00 Temperature 97.4 F L Pulse Rate 91 H Respiratory Rate 18 Blood Pressure 108/58 L Pulse Oximetry 93 L Intake & Output 05/14/18 05/15/18 05/15/18 18:59 06:59 18:59 Intake Total 1750 / 1750 Output Total 1200 / 1200 1900 / 1900 Balance 550 / 550 -1900 / -1900 Weight 77.8 kg Intake: IV 1350 / 1350 NS Inj 1,000 ML @ 100 mls/hr IV 1000 / 1000 .CONT .Q10H [facility] Rx#:[id number] Azithromycin Inj 500 MG In NS 250 / 250 Inj 250 ML @ 250 mls/hr IV.SIG Q24H [facility] Rx#:[id number] Rocephin Inj 1,000 MG In NS Inj 100 / 100 100 ML @ 200 mls/hr IV.SIG Q24H [facility] Rx#:[id number] Oral 400 / 400 Output: Urine 1200 / 1200 1100 / 1100 Chest Tube Drainage 800 / 800 #1 800 / 800 Other: # Voids 4 Date of Last Bowel Movement 05/13/18 05/14/18 # Bowel Movements 1 Narrative: GENERAL: No apparent distress. SKIN: Focused skin assessment warm/dry. HEAD: Atraumatic. Normocephalic. EYES: Pupils equal and round. No scleral icterus. No injection or drainage. ENT: No nasal bleeding or discharge. Mucous membranes pink and moist. NECK: Trachea midline. No JVD. CARDIOVASCULAR: Irregular regular, no audible murmur. RESPIRATORY: Diminished breath sounds throughout; no wheezing.chest tube right lung GASTROINTESTINAL: Abdomen soft, non-tender, no distention. No rebound tenderness , guarding, rigidity. MUSCULOSKELETAL: No obvious deformities. No clubbing. No cyanosis. TR lower extremity edema. NEUROLOGICAL: Awake and alert. No obvious cranial nerve deficits. Motor grossly within normal limits. Normal speech. PSYCHIATRIC: Appropriate mood and affect; insight and judgment normal. Results - Labs CBC & Chem 7: 05/14/18 06:31 05/14/18 06:31 Microbiology 05/14/18 12:30 Nasal Wash Influenza Types A,B Antigen - Final Negative for FLU A and B antigen Infection due to influenza A or B cannot be ruled out since the antigen present in the sample may be below the detection limit of the test. 05/13/18 14:00 Blood - Peripheral Aerobic Blood Culture - Preliminary No growth in 1 day 05/13/18 14:00 Blood - Peripheral Anaerobic Blood Culture - Preliminary No growth in 1 day 05/13/18 14:05 Blood - Peripheral Aerobic Blood Culture - Preliminary No growth in 1 day 05/13/18 14:05 Blood - Peripheral Anaerobic Blood Culture - Preliminary No growth in 1 day - Imaging Impressions Chest CT 05/14/18 00:00 CONCLUSION: 1. Large right-sided hydropneumothorax. Widespread underlying interstitial lung disease with some collapse of the right lower lobe. Severe interstitial disease on the left without pneumothorax or infiltrate. 2. History of dissection of the thoracic aorta, unchanged in size or appearance since June Chest Tube Insertion 05/14/18 00:00 CONCLUSION: 1. Uncomplicated chest tube placement as above. 2. Fluid was sent for culture and sensitivity testing as well as cytology - Procedures Chest tube placement May 14, 2018 Assessment and Plan - Plan 78-year-old man with COPD exacerbation with respiratory failure hypoxemia Continue acquired bacterial pneumonia Continue with Solu-Medrol 40 mg every 8 hour, bronchodilator schedule and as needed,Symbicort, azithromycin and Rocephin Continue Spiriva, Mucinex Maintain oxygen saturation above 92% Appreciate input from pulmonary medicine Sputum culture if indicated Large right-sided hydropneumothorax Status post chest tube placement and management per interventional radiology Paroxysmal atrial fibrillation Continue with diltiazem and, Coumadin Continue aspirin to 81 mg daily DVT prophylaxis: Coumadin
[2018-05-15] MEDS: dilTIAZem CD 120 MG Capsule PO SCH (09:35)
[2018-05-15] MEDS: Tiotropium Bromide 18 MCG/ACT Inhaler INH SCH (09:36)
[2018-05-15] MEDS: Budesonide-Formoterol 160/4.5 MCG 6 GM Inhaler INH SCH ×2 (09:36→21:29)
[2018-05-15] MEDS: guaiFENesin 600 MG ER Tablet PO SCH ×2 (09:36→21:28)
[2018-05-15 11:23] LABS: INR 1.7 Ratio
[2018-05-15] MEDS: Azithromycin Inj 500 MG in Sodium Chlor 0.9% Inj 250 ML IV.SIG SCH (15:29)
[2018-05-16] MEDS: MethylPREDNISolone Sod Succinate Inj 40 MG/ML Vial IV.PUSH SCH ×2 (06:39→17:11)
[2018-05-16 08:53] LABS: INR 1.7 Ratio; Prothrombin Time 17.4 sec (9.8-11.6)
[2018-05-16] MEDS: Budesonide-Formoterol 160/4.5 MCG 6 GM Inhaler INH SCH ×2 (08:54→22:21)
[2018-05-16] MEDS: guaiFENesin 600 MG ER Tablet PO SCH ×2 (08:54→22:22)
[2018-05-16] MEDS: dilTIAZem CD 120 MG Capsule PO SCH (08:54)
[2018-05-16] MEDS: Tiotropium Bromide 18 MCG/ACT Inhaler INH SCH (08:54)
--- NOTE | 2018-05-16 10:40 | P.PN ---
Subjective Interval history: Follow-up COPD exacerbation with respiratory failure/required pneumonia May 14, 2018-patient seen and examined, reports some improvement of shortness of breath. Still with some nonproductive cough. Requiring 6 L nasal cannula. Afebrile May 15, 2018-patient seen and examined, had chest tube placed yesterday and reports improvement of shortness of breath; no acute event overnight. May 16, 2018-patient seen and examined, breathing better and denies any significant shortness of breath. Vital stable. Physical Exam Vital signs: Vital Signs 05/15/18 12:00 05/15/18 12:52 05/15/18 15:50 Temperature 97.3 F L Pulse Rate 80 88 76 Respiratory Rate 20 16 Blood Pressure 111/62 Pulse Oximetry 93 L 05/15/18 16:00 05/15/18 17:03 05/15/18 20:00 Temperature 97.5 F L 97.6 F Pulse Rate 79 86 75 Respiratory Rate 20 16 16 Blood Pressure 98/60 L 101/59 L Pulse Oximetry 95 95 05/15/18 20:14 05/16/18 00:00 05/16/18 00:22 Temperature 97.1 F L Pulse Rate 74 75 92 H Respiratory Rate 19 18 20 Blood Pressure 96/58 L Pulse Oximetry 95 96 05/16/18 04:00 05/16/18 05:10 05/16/18 08:00 Temperature 97.5 F L 98.2 F Pulse Rate 73 72 80 Respiratory Rate 20 18 20 Blood Pressure 102/58 L 103/56 L Pulse Oximetry 95 97 05/16/18 08:13 05/16/18 09:00 Temperature Pulse Rate 80 84 Respiratory Rate 16 Blood Pressure Pulse Oximetry 96 Intake & Output 05/15/18 05/16/18 05/16/18 18:59 06:59 18:59 Intake Total 590 / 590 240 / 240 Output Total 1550 / 1550 1020 / 1020 Balance -960 / -960 -1020 / -1020 240 / 240 Weight 77.6 kg Intake: IV 350 / 350 Azithromycin Inj 500 MG In NS 250 / 250 Inj 250 ML @ 250 mls/hr IV.SIG Q24H [facility] Rx#:[id number] Rocephin Inj 1,000 MG In NS Inj 100 / 100 100 ML @ 200 mls/hr IV.SIG Q24H [facility] Rx#:[id number] Oral 240 / 240 240 / 240 Output: Urine 1550 / 1550 1000 / 1000 Wound Drainage # 1 Right Lateral Chest Other: Date of Last Bowel Movement 05/14/18 Narrative: GENERAL: No apparent distress. SKIN: Focused skin assessment warm/dry. HEAD: Atraumatic. Normocephalic. EYES: Pupils equal and round. No scleral icterus. No injection or drainage. ENT: No nasal bleeding or discharge. Mucous membranes pink and moist. NECK: Trachea midline. No JVD. CARDIOVASCULAR: Irregular regular, no audible murmur. RESPIRATORY: Diminished breath sounds throughout; no wheezing.chest tube in right lung GASTROINTESTINAL: Abdomen soft, non-tender, no distention. No rebound tenderness , guarding, rigidity. MUSCULOSKELETAL: No obvious deformities. No clubbing. No cyanosis. TR lower extremity edema. NEUROLOGICAL: Awake and alert. No obvious cranial nerve deficits. Motor grossly within normal limits. Normal speech. PSYCHIATRIC: Appropriate mood and affect; insight and judgment normal. Results - Labs CBC & Chem 7: 05/14/18 06:31 05/14/18 06:31 Laboratory Results - last 24 hr 05/15/18 05/16/18 09:26 07:02 PT 17.0 H 17.4 H INR 1.7 1.7 Microbiology 05/14/18 17:48 Fluid - Pleural fluid Gram Stain - Final 05/14/18 17:48 Fluid - Pleural fluid Body Fluid Culture - Preliminary No growth in 48 hours 05/13/18 14:00 Blood - Peripheral Aerobic Blood Culture - Preliminary No growth in 2 days 05/13/18 14:00 Blood - Peripheral Anaerobic Blood Culture - Preliminary No growth in 2 days 05/13/18 14:05 Blood - Peripheral Aerobic Blood Culture - Preliminary No growth in 2 days 05/13/18 14:05 Blood - Peripheral Anaerobic Blood Culture - Preliminary No growth in 2 days 05/14/18 23:50 Sputum - Expectorated Sputum Gram Stain - Final 05/14/18 15:00 Urine - Clean Catch Urine Legionella Antigen - Final Presumptive negative for Legionella pneumophila serogroup 1 antigen in urine, suggesting no recent or recurrent infection. Infection due to Legionella cannot be ruled out since other serogroups and species may cause disease, antigen may not be present in urine in early infection, and the level of antigen present in the urine may be below the detection limit of the test. 05/14/18 15:00 Urine - Clean Catch Urine Streptococcus pneumoniae Antigen ( M - Final Presumptive negative for streptococcus pneumoniae antigen, suggesting no current or recent infection. Infection due to Streptococcus pneumoniae cannot be ruled out since the antigen present in the sample may be below the detection limit of the test. - Procedures Chest tube placement May 14, 2018 Assessment and Plan - Plan 78-year-old man with COPD exacerbation with respiratory failure hypoxemia Continue acquired bacterial pneumonia Continue with Solu-Medrol 40 mg every 8 hour, bronchodilator schedule and as needed,Symbicort, azithromycin and Rocephin Continue Spiriva, Mucinex Maintain oxygen saturation above 92% Appreciate input from pulmonary medicine Large right-sided hydropneumothorax Status post chest tube placement and management per interventional radiology Continue to monitor output Paroxysmal atrial fibrillation Continue with diltiazem and, Coumadin Continue aspirin to 81 mg daily DVT prophylaxis: Coumadin
[2018-05-16] MEDS ORDERED: Sodium Chloride 0.9% 2 ML Flush PRN IV.FLUSH (10:42)
[2018-05-16] MEDS: Sodium Chloride 0.65% Nasal Spray 45 ML Bottle EACH NARE PRN ×2 (12:44→22:27)
[2018-05-16] MEDS: Azithromycin Inj 500 MG in Sodium Chlor 0.9% Inj 250 ML IV.SIG SCH ×2 (15:44→16:43)
[2018-05-16] MEDS: Sodium Chloride 0.9% 2 ML Flush BID IV.FLUSH SCH (22:22)
--- NOTE | 2018-05-17 06:34 | XR ---
EXAM DATE: 05/17/2018 6:25 AM EDT AGE/SEX: 78 years / Male INDICATIONS: Evaluate for pneumothorax. CLINICAL DATA: This is the patient's subsequent encounter. Patient reports that signs and symptoms h ave been present for 3 days and indicates a pain score of Nonresponsive. MEDICAL/SURGICAL HISTORY: . Aneurysm, abdominal. Chronic obstructive pulmonary disease. Lobec isaura. COMPARISON: [facility] [place] 05/14/2018. . FINDINGS: Diffuse right and basilar predominant left parenchymal opacities are present. Accounting for differen ezra in technique, I doubt a significant change. There is a small caliber chest tube at the right base . No perceptible pneumothorax. Emphysematous changes are again noted. Heart size stable, upper limits of normal. Patient has had previous median sternotomy. Scarring again seen of both apices. CONCLUSION: 1. Small caliber chest tube at the right base. No perceptible pneumothorax or significant pleural ef fusion 2. Diffuse right and basilar left parenchymal consolidation superimposed on scarred, emphysematous l ungs. Electronically signed by: Bony Mae MD 05/17/2018 6:32 AM EDT
[2018-05-17 07:25] LABS: INR 2.2 Ratio; Prothrombin Time 22.1 sec (9.8-11.6)
[2018-05-17] MEDS: Tiotropium Bromide 18 MCG/ACT Inhaler INH SCH (09:00)
[2018-05-17] MEDS: dilTIAZem CD 120 MG Capsule PO SCH (09:00)
[2018-05-17] MEDS: Sodium Chloride 0.9% 2 ML Flush BID IV.FLUSH SCH ×2 (09:00→20:49)
[2018-05-17] MEDS: Budesonide-Formoterol 160/4.5 MCG 6 GM Inhaler INH SCH ×2 (09:00→20:49)
[2018-05-17] MEDS: guaiFENesin 600 MG ER Tablet PO SCH ×2 (09:00→20:49)
[2018-05-17] MEDS: predniSONE 20 MG Tablet PO SCH (09:00)
--- NOTE | 2018-05-17 11:00 | P.PN ---
Subjective Interval history: Follow-up COPD exacerbation with respiratory failure/required pneumonia May 14, 2018-patient seen and examined, reports some improvement of shortness of breath. Still with some nonproductive cough. Requiring 6 L nasal cannula. Afebrile May 15, 2018-patient seen and examined, had chest tube placed yesterday and reports improvement of shortness of breath; no acute event overnight. May 16, 2018-patient seen and examined, breathing better and denies any significant shortness of breath. Vital stable. May 17, 2018-patient seen and examined, reported improvement of shortness of breath, chest x-ray this a.m. noted. by the bedside. Physical Exam Vital signs: Vital Signs 05/16/18 11:42 05/16/18 12:00 05/16/18 13:32 Temperature 98.8 F 97.2 F L Pulse Rate 83 92 H 69 Respiratory Rate 16 20 Blood Pressure 152/68 H 114/64 Pulse Oximetry 99 97 05/16/18 16:00 05/16/18 16:30 05/16/18 20:00 Temperature 97.0 F L 97.4 F L Pulse Rate 72 77 71 Respiratory Rate 18 20 Blood Pressure 111/58 L 95/67 L Pulse Oximetry 94 L 97 05/16/18 21:09 05/17/18 00:00 05/17/18 04:00 Temperature 97.2 F L 97.4 F L Pulse Rate 69 74 59 L Respiratory Rate 19 18 21 Blood Pressure 105/68 103/58 L Pulse Oximetry 99 94 L 95 05/17/18 08:00 05/17/18 08:59 Temperature 97.7 F Pulse Rate 69 82 Respiratory Rate 19 19 Blood Pressure 108/63 Pulse Oximetry 97 94 L Intake & Output 05/16/18 05/17/18 05/17/18 18:59 06:59 18:59 Intake Total 830 / 830 Output Total 600 / 600 1200 / 1200 Balance 230 / 230 -1200 / -1200 Weight 78.1 kg Intake: IV 350 / 350 Azithromycin Inj 500 MG In NS 250 / 250 Inj 250 ML @ 250 mls/hr IV.SIG Q24H [facility] Rx#:[id number] Rocephin Inj 1,000 MG In NS Inj 100 / 100 100 ML @ 200 mls/hr IV.SIG Q24H [facility] Rx#:[id number] Oral 480 / 480 Output: Urine 600 / 600 1200 / 1200 Wound Drainage 0 / 0 # 1 Right Lateral Chest 0 / 0 Other: # Voids 1 Date of Last Bowel Movement 05/15/18 05/15/18 # Bowel Movements 1 Narrative: GENERAL: No apparent distress. SKIN: Focused skin assessment warm/dry. HEAD: Atraumatic. Normocephalic. EYES: Pupils equal and round. No scleral icterus. No injection or drainage. ENT: No nasal bleeding or discharge. Mucous membranes pink and moist. NECK: Trachea midline. No JVD. CARDIOVASCULAR: Irregular regular, no audible murmur. RESPIRATORY: Diminished breath sounds throughout; no wheezing.chest tube in right lung GASTROINTESTINAL: Abdomen soft, non-tender, no distention. No rebound tenderness , guarding, rigidity. MUSCULOSKELETAL: No obvious deformities. No clubbing. No cyanosis. TR lower extremity edema. NEUROLOGICAL: Awake and alert. No obvious cranial nerve deficits. Motor grossly within normal limits. Normal speech. PSYCHIATRIC: Appropriate mood and affect; insight and judgment normal. Results - Labs CBC & Chem 7: 05/14/18 06:31 05/14/18 06:31 Laboratory Results - last 24 hr 05/17/18 06:48 PT 22.1 H INR 2.2 Microbiology 05/14/18 17:48 Fluid - Pleural fluid Gram Stain - Final 05/14/18 17:48 Fluid - Pleural fluid Body Fluid Culture - Final No growth in 72 hours (aerobically and anaerobically ) 05/14/18 23:50 Sputum - Expectorated Sputum Gram Stain - Final 05/14/18 23:50 Sputum - Expectorated Sputum Sputum Culture - Preliminary Pseudomonas species 05/13/18 14:00 Blood - Peripheral Aerobic Blood Culture - Preliminary No growth in 3 days 05/13/18 14:00 Blood - Peripheral Anaerobic Blood Culture - Preliminary No growth in 3 days 05/13/18 14:05 Blood - Peripheral Aerobic Blood Culture - Preliminary No growth in 3 days 05/13/18 14:05 Blood - Peripheral Anaerobic Blood Culture - Preliminary No growth in 3 days - Imaging Impressions Chest X-Ray 05/17/18 06:00 CONCLUSION: 1. Small caliber chest tube at the right base. No perceptible pneumothorax or significant pleural effusion 2. Diffuse right and basilar left parenchymal consolidation superimposed on scarred, emphysematous lungs. - Procedures Chest tube placement May 14, 2018 Assessment and Plan - Plan 78-year-old man with COPD exacerbation with respiratory failure hypoxemia Continue acquired bacterial pneumonia s/p Solu-Medrol 40 mg every 8 hour, currently on prednisone 20 daily, bronchodilator schedule and as needed,Symbicort, azithromycin and Rocephin Continue Spiriva, Mucinex Maintain oxygen saturation above 92% Appreciate input from pulmonary medicine Sputum culture with Pseudomonas species Large right-sided hydropneumothorax Status post chest tube placement and management per interventional radiology Repeat chest x-ray May 17, 2018 with finding of No perceptible pneumothorax or significant pleural effusion Continue to monitor output Paroxysmal atrial fibrillation Continue with diltiazem and, Coumadin Continue aspirin to 81 mg daily DVT prophylaxis: Coumadin
[2018-05-17] MEDS: Azithromycin Inj 500 MG in Sodium Chlor 0.9% Inj 250 ML IV.SIG SCH (16:38)
--- NOTE | 2018-05-18 06:51 | XR ---
EXAM DATE: 05/18/2018 6:45 AM EDT AGE/SEX: 78 years / Male INDICATIONS: Short of breath, evaluate pleural effusion CLINICAL DATA: This is the patient's subsequent encounter. Patient reports that signs and symptoms h ave been present for 4 - 6 days and indicates a pain score of 5/10. MEDICAL/SURGICAL HISTORY: Chronic obstructive pulmonary disease. Aneurysm, abdominal. Chest tu be, right. lobectomy COMPARISON: [facility] – [place], CHEST EXPIRATION ONLY, 05/17/2018. . FINDINGS: Patchy parenchymal opacities are again seen of both lungs, fairly diffuse on the right and mostly at the base and apex on the left. Small caliber chest tube at the right base remains in place. No pneumo thorax or significant effusion seen. Heart size stable, upper limits of normal. Median sternotomy changes are again noted. CONCLUSION: No significant change. Bilateral parenchymal opacities persist. Small-caliber right chest tube withou t pneumothorax or perceptible effusion. Electronically signed by: Bony Mae MD 05/18/2018 6:50 AM EDT
[2018-05-18 07:05] LABS: INR 1.7 Ratio; Prothrombin Time 17.2 sec (9.8-11.6)
[2018-05-18] MEDS: Sodium Chloride 0.9% 2 ML Flush BID IV.FLUSH SCH ×2 (08:18→20:24)
[2018-05-18] MEDS: dilTIAZem CD 120 MG Capsule PO SCH (08:18)
[2018-05-18] MEDS: predniSONE 20 MG Tablet PO SCH (08:18)
[2018-05-18] MEDS: guaiFENesin 600 MG ER Tablet PO SCH ×2 (08:18→20:21)
[2018-05-18] MEDS: Tiotropium Bromide 18 MCG/ACT Inhaler INH SCH (08:20)
[2018-05-18] MEDS: Budesonide-Formoterol 160/4.5 MCG 6 GM Inhaler INH SCH ×2 (08:20→20:21)
[2018-05-18] MEDS: Sodium Chloride 0.65% Nasal Spray 45 ML Bottle EACH NARE PRN (08:22)
--- NOTE | 2018-05-18 11:30 | XR ---
EXAM DATE: 05/18/2018 11:23 AM EDT AGE/SEX: 78 years / Male INDICATIONS: S/p chest tube removal. CLINICAL DATA: This is the patient's initial encounter. Patient reports that signs and symptoms have been present for 4 - 6 days and indicates a pain score of 0/10. MEDICAL/SURGICAL HISTORY: . copd . right side lobectomy [place] [facility] [place]18/[place]. . FINDINGS: A single frontal expiratory view of the chest was performed. . Interstitial densities. Postsurgical changes right upper lobe. Biapical densities are seen. There is also bibasilar atelectasis. Right-pauly ed chest tube removal with small right apical pneumothorax. Mediastinal structures are in the midli ne. Status post CABG. CONCLUSION: Small right apical pneumothorax. Electronically signed by: John Gonzalez MD 05/18/2018 11:28 AM EDT
--- NOTE | 2018-05-18 11:54 | P.PN ---
Subjective Interval history: Follow-up COPD exacerbation with respiratory failure/required pneumonia May 18, 2018-patient seen and examined, sputum positive for Pseudomonas. Patient reported improving shortness of breath. Currently afebrile. Physical Exam Vital signs: Vital Signs 05/17/18 12:00 05/17/18 15:36 05/17/18 16:00 Temperature 97.8 F 98 F Pulse Rate 77 79 87 Respiratory Rate 19 18 19 Blood Pressure 122/62 108/56 L Pulse Oximetry 96 95 05/17/18 20:00 05/17/18 22:04 05/18/18 00:00 Temperature 97.8 F 97.6 F Pulse Rate 87 77 71 Respiratory Rate 18 20 18 Blood Pressure 114/73 118/61 Pulse Oximetry 96 92 L 92 L 05/18/18 00:27 05/18/18 04:00 05/18/18 06:00 Temperature 98.0 F Pulse Rate 82 72 81 Respiratory Rate 18 Blood Pressure 93/55 L Pulse Oximetry 91 L 05/18/18 08:00 05/18/18 08:43 Temperature 98.1 F Pulse Rate 95 H 89 Respiratory Rate 16 16 Blood Pressure 108/58 L Pulse Oximetry 93 L 92 L Intake & Output 05/17/18 05/18/18 05/18/18 18:59 06:59 18:59 Intake Total 240 / 240 350 / 350 Output Total 1090 / 1090 1350 / 1350 Balance -850 / -850 -1000 / -1000 Weight 77.1 kg Intake: IV 350 / 350 Azithromycin Inj 500 MG In NS 250 / 250 Inj 250 ML @ 250 mls/hr IV.SIG Q24H [facility] Rx#:[id number] Rocephin Inj 1,000 MG In NS Inj 100 / 100 100 ML @ 200 mls/hr IV.SIG Q24H [facility] Rx#:[id number] Oral 240 / 240 Output: Urine 1000 / 1000 1350 / 1350 Wound Drainage 0 / 0 # 1 Right Lateral Chest 0 / 0 Chest Tube Drainage 90 / 90 #1 90 / 90 Other: # Voids 1 Date of Last Bowel Movement 05/15/18 05/15/18 # Bowel Movements 1 Narrative: GENERAL: No apparent distress. SKIN: Focused skin assessment warm/dry. HEAD: Atraumatic. Normocephalic. EYES: Pupils equal and round. No scleral icterus. No injection or drainage. ENT: No nasal bleeding or discharge. Mucous membranes pink and moist. NECK: Trachea midline. No JVD. CARDIOVASCULAR: Irregular regular, no audible murmur. RESPIRATORY: Diminished breath sounds throughout; no wheezing.chest tube in right lung GASTROINTESTINAL: Abdomen soft, non-tender, no distention. No rebound tenderness , guarding, rigidity. MUSCULOSKELETAL: No obvious deformities. No clubbing. No cyanosis. TR lower extremity edema. NEUROLOGICAL: Awake and alert. No obvious cranial nerve deficits. Motor grossly within normal limits. Normal speech. PSYCHIATRIC: Appropriate mood and affect; insight and judgment normal. Results - Labs CBC & Chem 7: 05/14/18 06:31 05/14/18 06:31 Laboratory Results - last 24 hr 05/18/18 04:05 PT 17.2 H INR 1.7 Microbiology 05/13/18 14:00 Blood - Peripheral Aerobic Blood Culture - Final No growth in 5 days 05/13/18 14:00 Blood - Peripheral Anaerobic Blood Culture - Final No growth in 5 days 05/13/18 14:05 Blood - Peripheral Aerobic Blood Culture - Final No growth in 5 days 05/13/18 14:05 Blood - Peripheral Anaerobic Blood Culture - Final No growth in 5 days 05/14/18 23:50 Sputum - Expectorated Sputum Gram Stain - Final 05/14/18 23:50 Sputum - Expectorated Sputum Sputum Culture - Final Pseudomonas aeruginosa 05/14/18 17:48 Fluid - Pleural fluid Gram Stain - Final 05/14/18 17:48 Fluid - Pleural fluid Body Fluid Culture - Final No growth in 72 hours (aerobically and anaerobically ) - Imaging Impressions Chest X-Ray 05/18/18 00:00 CONCLUSION: No significant change. Bilateral parenchymal opacities persist. Small-caliber right chest tube without pneumothorax or perceptible effusion. Chest X-Ray 05/18/18 00:00 CONCLUSION: Small right apical pneumothorax. - Procedures Chest tube placement May 14, 2018 Assessment and Plan - Plan 78-year-old man with COPD exacerbation with respiratory failure hypoxemia Continue acquired bacterial pneumonia s/p Solu-Medrol 40 mg every 8 hour, currently on prednisone 20 daily, bronchodilator schedule and as needed,Symbicort, azithromycin and Rocephin Continue Spiriva, Mucinex Maintain oxygen saturation above 92% Appreciate input from pulmonary medicine Sputum culture with Pseudomonas, therefore will consult infectious disease today May 18, 2018 Large right-sided hydropneumothorax Status post chest tube placement and management per interventional radiology. Continue to monitor output Repeat chest x-ray May 17, 2018 with finding of No perceptible pneumothorax or significant pleural effusion Continue to monitor output Paroxysmal atrial fibrillation Continue with diltiazem and, Coumadin Continue aspirin to 81 mg daily DVT prophylaxis: Coumadin
--- NOTE | 2018-05-18 13:10 | P.CONID ---
History of Present Illness Service: Infectious Disease Consult date: 05/18/18 Requesting Physician: John Gallardo Reason for Consult: Evalaution and Mment of sputum culture positive for Pseudomonas. Primary Care Provider: UNKNOWN Chief Complaint: Shortness of breath History of Present Illness: Mr. Rodriguez is a 78-year-old male with past medical history significant for COPD on home oxygen. Patient reports that approximately one year back he was on 2 L of oxygen but this has increased now to 3 L. Patient reports that he uses a walker at home for ambulation as well as to park his oxygen cylinder. She reports that he participates in [place] at COPD rehab and uses a hand ergometer, treadmill for 5 minutes as well as some other exercises 2 times a week on Tuesdays and . Patient also reports that at home he is able to ambulate to the bathroom and able to perform his activities of daily living. He lives at home with his . Patient reports that he had more labored breathing over the last 2 weeks so he went to see Dr. Binh Josue his manager utilization review. Patient's prednisone dose was increased but that did not make him feel any better. Due to progressively worsening shortness of breath he was asked to come to the hospital. Patient reports that he had shortness of breath on minimal sitting down and standing up which was new compared to his baseline. He increase his oxygen to 4 L nasal cannula at home. He reports that despite all these measures his O2 saturations remained in the 70s. He denies any fever chills or night sweats. He reports clear mucus production but that is at his baseline with no increase in volume or change in quality of the sputum. He also reports chronic lower extremity swelling but that is not new for him. He reports this is his third bout of pneumonia. Patient reports that he had a prior pneumonectomy as well as lobectomy of the right side. He is a former smoker but has quit now. Cultures done in the hospital revealed sputum cultures positive for pseudomonas aeruginosa and infectious diseases consulted for the same. PMHx: AAA (abdominal aortic aneurysm) AAA (abdominal aortic aneurysm, ruptured) Afib Blood thinned due to long-term anticoagulant use COPD (chronic obstructive pulmonary disease) Hyperlipidemia Oxygen deficiency Pneumonia Pneumothorax Shortness of breath PSHx: Surgical History (Last Updated 05/13/18 @ 15:21 by Ezra Sayess, DO) S/P lobectomy of lung Review of Systems All other systems reviewed negative except as stated in HPI [facility] - History History Provided By: Patient - Medical History Medical History: Medical History (Last Reviewed 05/18/18 @ 10:45 by Elbert Good) AAA (abdominal aortic aneurysm) AAA (abdominal aortic aneurysm, ruptured) Afib Blood thinned due to long-term anticoagulant use COPD (chronic obstructive pulmonary disease) Hyperlipidemia Oxygen deficiency Pneumonia Pneumothorax Shortness of breath - Surgical History Surgical History: Surgical History (Last Reviewed 05/18/18 @ 10:45 by Elbert Good) S/P lobectomy of lung - Family History Family History: Family History (Last Reviewed 05/16/18 @ 08:41 by Brooke Salazar) Other Brain aneurysm - Tobacco History Second Hand Smoke Exposure: No Smoking Status: Former smoker Tobacco Type: Cigarettes - Alcohol History How Often Do You Have a Drink Containing Alcohol: 4 or more times a week - Substance Use History Substance History: No History of Abuse - Travel History Recent Travel in the [facility] Within the Last 8 Weeks: No Recent Travel Out of the Country Within the Last 8 Weeks: No - Immunization History Tetanus Immunization: <5 Years Medications and Allergies Active Medications: Active Medications Acetaminophen (Tylenol) 650 mg PO Q4H PRN PRN Reason: Temp > 100.4, pain 1-2 Albuterol (Duoneb Neb (Prn)) 1 ampul NEB Q2HR NEB PRN PRN Reason: DYSPNEA Last Admin: 05/14/18 02:15 Dose: 1 ampul Albuterol (Duoneb Neb ([place])) 1 ampul NEB TID NEB [facility] Last Admin: 05/18/18 13:00 Dose: 1 ampul Aspirin (Ecotrin) 81 mg PO DAILY [facility] Last Admin: 05/18/18 08:18 Dose: 81 mg Atorvastatin Calcium (Lipitor) 20 mg PO DAILY [facility] Last Admin: 05/18/18 08:18 Dose: 20 mg Budesonide/Formoterol Fumarate (Symbicort 160/4.5 Mcg Inh) 2 puff INH BID [facility] Last Admin: 05/18/18 08:20 Dose: 2 puff Diltiazem HCl (Cardizem Cd 24hr) 120 mg PO DAILY [facility] Last Admin: 05/18/18 08:18 Dose: 120 mg Guaifenesin (Mucinex Er) 600 mg PO BID [facility] Last Admin: 05/18/18 08:18 Dose: 600 mg Azithromycin 500 mg/ Sodium (Chloride) 250 mls @ 250 mls/hr IV.SIG Q24H [facility] Last Infusion: 05/17/18 19:38 Dose: Infused Ceftriaxone Sodium 1,000 mg/ (Sodium Chloride) 100 mls @ 200 mls/hr IV.SIG Q24H [facility] Last Infusion: 05/17/18 20:06 Dose: Infused Pharmacy Profile Note (Coumadin Consult Pharmacy) 1 each OTHER UNSCH PRN PRN Reason: PHARMACY DOCUMENTATION Last Admin: 05/17/18 18:38 Dose: 1 each Prednisone (Deltasone) 20 mg PO DAILY [facility] Last Admin: 05/18/18 08:18 Dose: 20 mg Sodium Chloride ([place] Nasal [place]) 2 spray EACH NARE Q6H PRN PRN Reason: NASAL IRRITATION Last Admin: 05/18/18 08:22 Dose: 2 spray Sodium Chloride (Ns Flush) 2 ml IV.FLUSH BID [facility] Last Admin: 05/18/18 08:18 Dose: 2 ml Sodium Chloride (Ns Flush) 2 ml IV.FLUSH PRN PRN PRN Reason: FLUSH AFTER USING IV ACCESS Tiotropium [place] (Spiriva 18 Mcg Inh) 18 mcg INH DAILY [facility] Last Admin: 05/18/18 08:20 Dose: 18 mcg Warfarin Sodium (Coumadin) 3 mg PO DAILY@1600 [facility] Allergies Allergy/AdvReac Type Severity Reaction Status Date / Time *MDRO Multi-Drug Resistant AdvReac Unknown Uncoded 12/08/15 09:33 Organism Home Medications Medication Instructions Recorded Confirmed Type aspirin [Serena Aspirin] 325 mg PO DAILY 05/13/18 05/13/18 History atorvastatin 20 mg PO DAILY 05/13/18 05/13/18 History diltiazem HCl 120 mg PO DAILY 05/13/18 05/13/18 History fluticasone-salmeterol [Advair 1 inh INHALATION BID 05/13/18 05/13/18 History Diskus] prednisone 20 mg PO DAILY 05/13/18 05/13/18 History warfarin 3 mg PO DAILY 05/13/18 05/13/18 History warfarin See Label Instructions .ROUTE 05/13/18 05/13/18 History .COMPLEX Exam Vital signs: Vital Signs 05/17/18 15:36 05/17/18 16:00 05/17/18 20:00 Temperature 98 F 97.8 F Pulse Rate 79 87 87 Respiratory Rate 18 19 18 Blood Pressure 108/56 L 114/73 Pulse Oximetry 95 96 05/17/18 22:04 05/18/18 00:00 05/18/18 00:27 Temperature 97.6 F Pulse Rate 77 71 82 Respiratory Rate 20 18 Blood Pressure 118/61 Pulse Oximetry 92 L 92 L 05/18/18 04:00 05/18/18 06:00 05/18/18 08:00 Temperature 98.0 F 98.1 F Pulse Rate 72 81 95 H Respiratory Rate 18 16 Blood Pressure 93/55 L 108/58 L Pulse Oximetry 91 L 93 L 05/18/18 08:43 05/18/18 13:01 Temperature Pulse Rate 89 90 Respiratory Rate 16 16 Blood Pressure Pulse Oximetry 92 L Intake & Output 05/17/18 05/18/18 05/18/18 18:59 06:59 18:59 Intake Total 240 / 240 350 / 350 Output Total 1090 / 1090 1350 / 1350 Balance -850 / -850 -1000 / -1000 Weight 77.1 kg Intake: IV 350 / 350 Azithromycin Inj 500 MG In NS 250 / 250 Inj 250 ML @ 250 mls/hr IV.SIG Q24H [facility] Rx#:[id number] Rocephin Inj 1,000 MG In NS Inj 100 / 100 100 ML @ 200 mls/hr IV.SIG Q24H [facility] Rx#:[id number] Oral 240 / 240 Output: Urine 1000 / 1000 1350 / 1350 Wound Drainage 0 / 0 # 1 Right Lateral Chest 0 / 0 Chest Tube Drainage 90 / 90 #1 90 / 90 Other: # Voids 1 Date of Last Bowel Movement 05/15/18 05/15/18 # Bowel Movements 1 Narrative: GENERAL: Well-nourished well-developed, not in acute distress SKIN: Cool and dry, no generalized rash HEAD: Atraumatic. Normocephalic. No temporal or scalp tenderness. EYES: Pupils equal round and reactive. Scleral icterus. No injection or drainage. No petechia ENT: Nothing abnormal detected. Nasal cannula in place. Able to complete sentences. NECK: Trachea midline. Supple, nontender, no meningeal signs. CARDIOVASCULAR: HS audible. Chest tube site with no evidence of infection. RESPIRATORY: Clear to auscultation bilaterally. GASTROINTESTINAL: Abdomen soft nontender. MUSCULOSKELETAL: Bilateral lower extremity pitting edema. NEUROLOGICAL: Alert oriented 3. Nonfocal. Psych cooperative IV line sites ok. Results - Labs CBC & Chem 7: 05/14/18 06:31 05/14/18 06:31 Labs: Laboratory Results - last 24 hr 05/18/18 04:05 PT 17.2 H INR 1.7 - Imaging Impressions Chest X-Ray 05/18/18 00:00 CONCLUSION: No significant change. Bilateral parenchymal opacities persist. Small-caliber right chest tube without pneumothorax or perceptible effusion. Chest X-Ray 05/18/18 00:00 CONCLUSION: Small right apical pneumothorax. Assessment and Plan - Plan Acute COPD exacerbation on admission now appears to be controlled Pneumothorax status post chest tube placement and now removal. Sputum culture positive for pseudomonas aeruginosa. Patient has improved clinically despite no treatment for Pseudomonas. Patient has been on ceftriaxone IV as well as azithromycin which is not directed towards pseudomonas aeruginosa. Suspect possible colonization in a COPD. Recommendations: Discontinue ceftriaxone IV Discontinue azithromycin IV Reviewed twelve-lead EKG with Dr. Gallardo QT interval normal. At the present time because patient is clinically improved without any treatment for pseudomonas aeruginosa I would recommend treating this as possible colonization. On the other hand if Dr. Bnih Josue patient's manager utilization review feels strongly about it it is okay to treat With oral levaquin 500 mg po daily for 5-7 days. If levaquin chosen for treatment please give patient probiotics. It appears the acute exacerbation was likely due to new pneumothorax or COPD rather than infection as normal WBC and no fever on admission. Patient counseled about Levaquin, Cdiff and resistant infections. Daniel monterroso RN
--- NOTE | 2018-05-18 13:16 | IR ---
EXAM DATE: 05/18/2018 11:02 AM EDT AGE/SEX: 78 years / Male INDICATIONS: COMPARISON: C, CHEST EXPIRATION ONLY, 05/17/2018. . DEVICE(S): PROCEDURE: 1. Chest tube removal. Using aseptic technique the previously placed chest tube was easily removed in one piece and Vaseline gauze and sterile dressing was applied. Chest radiograph is to be obtained. CONCLUSION: 1. Uncomplicated chest tube removal. Electronically signed by: Chuy Blackmon MD 05/18/2018 1:15 PM EDT
[2018-05-19 09:29] LABS: INR 1.2 Ratio; Prothrombin Time 12.3 sec (9.8-11.6)
[2018-05-19] MEDS: guaiFENesin 600 MG ER Tablet PO SCH (10:15)
[2018-05-19] MEDS: predniSONE 20 MG Tablet PO SCH (10:15)
[2018-05-19] MEDS: dilTIAZem CD 120 MG Capsule PO SCH (10:15)
[2018-05-19] MEDS: Budesonide-Formoterol 160/4.5 MCG 6 GM Inhaler INH SCH (10:16)
[2018-05-19] MEDS: Tiotropium Bromide 18 MCG/ACT Inhaler INH SCH (10:16)
[2018-05-19] MEDS: Sodium Chloride 0.9% 2 ML Flush BID IV.FLUSH SCH (10:18)
--- NOTE | 2018-05-19 10:31 | P.PN ---
Subjective Interval history: Follow-up COPD exacerbation with respiratory failure/required pneumonia May 18, 2018-patient seen and examined, sputum positive for Pseudomonas. Patient reported improving shortness of breath. Currently afebrile. May 19, 2018-patient seen and examined, chest tube was discontinued yesterday. Case was discussed with infectious disease secondary to positive sputum for pseudomonas aeruginosa on May 18, 2018 regarding discharge home on antibiotics. However ID had discussed with pulmonary medicine and he was recommended patient be discharged home without any antibiotic. Reports one episode of hypoxemia overnight otherwise resolved Physical Exam Vital signs: Vital Signs 05/18/18 12:00 05/18/18 13:01 05/18/18 16:00 Temperature 97.8 F 97.8 F Pulse Rate 86 90 96 H Respiratory Rate 18 16 18 Blood Pressure 113/66 103/64 Pulse Oximetry 90 L 92 L 05/18/18 19:59 05/18/18 20:00 05/18/18 22:18 Temperature 98 F Pulse Rate 96 H 88 88 Respiratory Rate 16 18 Blood Pressure 114/65 Pulse Oximetry 92 L 91 L 05/18/18 23:47 05/19/18 00:00 05/19/18 04:00 Temperature 97.8 F 98.1 F Pulse Rate 92 H 81 84 Respiratory Rate 18 18 Blood Pressure 112/62 102/63 Pulse Oximetry 94 L 95 05/19/18 07:54 05/19/18 08:00 Temperature 99.0 F Pulse Rate 80 98 H Respiratory Rate 18 24 Blood Pressure 111/57 L Pulse Oximetry 96 94 L Intake & Output 05/18/18 05/19/18 05/19/18 18:59 06:59 18:59 Output Total 800 / 800 Balance -800 / -800 Weight 77.1 kg Output: Urine 800 / 800 Other: Date of Last Bowel Movement 05/15/18 Narrative: GENERAL: NAD SKIN: Warm and dry. HEAD: Atraumatic. Normocephalic. EYES: Pupils equal and round. No scleral icterus. No injection or drainage. ENT: No nasal bleeding or discharge. Mucous membranes pink and moist. NECK: Trachea midline. No JVD. CARDIOVASCULAR: Regular rate and rhythm. RESPIRATORY: No accessory muscle use. Clear to auscultation. Breath sounds equal bilaterally. GASTROINTESTINAL: Abdomen soft, non-tender, nondistended. Hepatic and splenic margins not palpable. MUSCULOSKELETAL: Extremities without clubbing, cyanosis, or edema. No obvious deformities. NEUROLOGICAL: Awake and alert. No obvious cranial nerve deficits. Motor grossly within normal limits. Five out of 5 muscle strength in the arms and legs. Normal speech. PSYCHIATRIC: Appropriate mood and affect; insight and judgment normal. Results - Labs CBC & Chem 7: 05/14/18 06:31 05/14/18 06:31 Laboratory Results - last 24 hr 05/19/18 08:16 PT 12.3 H INR 1.2 Microbiology 05/13/18 14:00 Blood - Peripheral Aerobic Blood Culture - Final No growth in 5 days 05/13/18 14:00 Blood - Peripheral Anaerobic Blood Culture - Final No growth in 5 days 05/13/18 14:05 Blood - Peripheral Aerobic Blood Culture - Final No growth in 5 days 05/13/18 14:05 Blood - Peripheral Anaerobic Blood Culture - Final No growth in 5 days 05/14/18 23:50 Sputum - Expectorated Sputum Gram Stain - Final 05/14/18 23:50 Sputum - Expectorated Sputum Sputum Culture - Final Pseudomonas aeruginosa - Imaging Impressions Chest X-Ray 05/18/18 00:00 CONCLUSION: Small right apical pneumothorax. Tunnelled Chest Tube Removal 05/18/18 00:00 CONCLUSION: 1. Uncomplicated chest tube removal. - Procedures Chest tube placement May 14, 2018 Chest tube removed May 18, 2018 Assessment and Plan - Plan 78-year-old man with COPD exacerbation with respiratory failure hypoxemia Continue acquired bacterial pneumonia s/p Solu-Medrol 40 mg every 8 hour, currently on prednisone 20 daily, bronchodilator schedule and as needed,Symbicort, Patient completed azithromycin and Rocephin Continue Spiriva, Mucinex Maintain oxygen saturation above 92% Appreciate input from pulmonary medicine Sputum culture with Pseudomonas aeruginosa Case was discussed with infectious disease secondary to positive sputum for pseudomonas aeruginosa on May 18, 2018 regarding discharge home on antibiotics. However ID had discussed with pulmonary medicine and it was recommended patient be discharged home without any antibiotic. Large right-sided hydropneumothorax-resolved prior to discharge Status post chest tube placement and management per interventional radiology which was subsequently discontinued on May 18, 2018. Continue to monitor output Paroxysmal atrial fibrillation Continue with diltiazem and, Coumadin Continue aspirin to 81 mg daily DVT prophylaxis: Coumadin
--- NOTE | 2018-05-19 10:36 | P.DS ---
Date of admission: 05/13/18 14:54 Primary care physician: UNKNOWN Brief History from admission: The patient is a 78-year-old male with a past medical history of COPD on home oxygen who is presenting to the hospital with shortness of breath. The patient has chronic shortness of breath but his breathing became more labored about 2 weeks ago. He went to his toy trains and accessories salesperson who ordered a chest x-ray and increased his prednisone dose. The patient did not feel much better. He says over the past 3 days his breathing has gotten progressively worse. He feels short of breath sitting down and standing up. He increased his home oxygen to 4 L nasal cannula all of the time. At home his pulse oximeter said that his oxygen level was in the 70s and it took a long time to get back up to the 80s. He denies any fever. He has had clear mucus production. He has chronic lower extremity swelling but nothing new. He says this is the third bout of pneumonia he has had. He has had a prior pneumothorax and lobectomy. He is a former smoker. DS: Summary Hospital Course: While in hospital, patient was treated for: COPD exacerbation with respiratory failure hypoxemia Community acquired bacterial pneumonia s/p Solu-Medrol 40 mg every 8 hour, he was treated with prednisone 20 daily, bronchodilator schedule and as needed,Symbicort, Patient completed azithromycin and Rocephin Treated with Spiriva, Mucinex Maintain oxygen saturation above 92% Pulmonary medicine was consulted Sputum culture with Pseudomonas aeruginosa Case was discussed with infectious disease secondary to positive sputum for pseudomonas aeruginosa on May 18, 2018 regarding discharge home on antibiotics. However ID had discussed with pulmonary medicine and it was recommended patient be discharged home without any antibiotic. Large right-sided hydropneumothorax-resolved prior to discharge Status post chest tube placement and management per interventional radiology which was subsequently discontinued on May 18, 2018. Paroxysmal atrial fibrillation Treated with diltiazem and, Coumadin Treated with aspirin to 81 mg daily DVT prophylaxis: Coumadin Physical therapy was consulted - Time Spent with Patient Total time spent providing and/or coordinating discharge services: Less than 30 minutes - Quality: VTE Deep Vein Thrombosis/Pulmonary Embolism Present on Admission: No Exam Vital signs: Vital Signs 05/18/18 12:00 05/18/18 13:01 05/18/18 16:00 Temperature 97.8 F 97.8 F Pulse Rate 86 90 96 H Respiratory Rate 18 16 18 Blood Pressure 113/66 103/64 Pulse Oximetry 90 L 92 L 05/18/18 19:59 05/18/18 20:00 05/18/18 22:18 Temperature 98 F Pulse Rate 96 H 88 88 Respiratory Rate 16 18 Blood Pressure 114/65 Pulse Oximetry 92 L 91 L 05/18/18 23:47 05/19/18 00:00 05/19/18 04:00 Temperature 97.8 F 98.1 F Pulse Rate 92 H 81 84 Respiratory Rate 18 18 Blood Pressure 112/62 102/63 Pulse Oximetry 94 L 95 05/19/18 07:54 05/19/18 08:00 Temperature 99.0 F Pulse Rate 80 98 H Respiratory Rate 18 24 Blood Pressure 111/57 L Pulse Oximetry 96 94 L Intake & Output 05/18/18 05/19/18 05/19/18 18:59 06:59 18:59 Output Total 800 / 800 Balance -800 / -800 Weight 77.1 kg Output: Urine 800 / 800 Other: Date of Last Bowel Movement 05/15/18 Narrative: GENERAL: NAD SKIN: Warm and dry. HEAD: Atraumatic. Normocephalic. EYES: Pupils equal and round. No scleral icterus. No injection or drainage. ENT: No nasal bleeding or discharge. Mucous membranes pink and moist. NECK: Trachea midline. No JVD. CARDIOVASCULAR: Regular rate and rhythm. RESPIRATORY: No accessory muscle use. Clear to auscultation. Breath sounds equal bilaterally. GASTROINTESTINAL: Abdomen soft, non-tender, nondistended. Hepatic and splenic margins not palpable. MUSCULOSKELETAL: Extremities without clubbing, cyanosis, or edema. No obvious deformities. NEUROLOGICAL: Awake and alert. No obvious cranial nerve deficits. Motor grossly within normal limits. Five out of 5 muscle strength in the arms and legs. Normal speech. PSYCHIATRIC: Appropriate mood and affect; insight and judgment normal. Results Procedures completed during hospitalization: Chest tube placement May 14, 2018 Chest tube removed May 18, 2018 Labs on day of discharge: Labs from last 24 hours 05/19/18 08:16 PT 12.3 H INR 1.2 - Impressions ITS Impressions Chest CT 05/14/18 00:00 CONCLUSION: 1. Large right-sided hydropneumothorax. Widespread underlying interstitial lung disease with some collapse of the right lower lobe. Severe interstitial disease on the left without pneumothorax or infiltrate. 2. History of dissection of the thoracic aorta, unchanged in size or appearance since June Chest Tube Insertion 05/14/18 00:00 CONCLUSION: 1. Uncomplicated chest tube placement as above. 2. Fluid was sent for culture and sensitivity testing as well as cytology Chest X-Ray 05/18/18 00:00 CONCLUSION: Small right apical pneumothorax. Tunnelled Chest Tube Removal 05/18/18 00:00 CONCLUSION: 1. Uncomplicated chest tube removal. Discharge Plan - Discharge Disposition Patient Disposition: Discharge Home - Discharge Condition Condition: Stable - Discharge Order Discharge Orders: Discharge Order (Routine); Ordered 05/19/18 Ordered By: John Gallardo - Physicians Team Primary Care Provider: UNKNOWN, Attending Provider: John Gallardo Other Providers: Jesus Bob MD ; Telma Ramos MD
== END 2018-05-19 10:54 | disposition home or self-care (01) ==
LOC: NEPE 13:12 → NEDA 14:54 → N05 17:24
PROVIDERS: ADMIT Hospitalist; ATTEND Hospitalist